=== PATIENT | male | born 1950 | race Caucasian/White ===

== ENCOUNTER 2018-06-13 15:27 | Emergency (ER) | payer OTHER ==
[~2018-06-13] VITALS: Ht 167.6 cm; Wt 78.9 kg
[2018-06-13 15:51] VITALS: BP 137/76
--- NOTE | 2018-06-13 16:10 | NUR ---
PT BIB SELF TO THE ED WITH THE CHIEF C/O NOSE PAIN S/P FALL FROM LADDER 30 TODAY. DENIES LOC AFTER FALL. DENIES DIZZINESS OR NAUSEA AT THIS TIME. STATES PAIN OF 8/10. LACERATION NOTED ON NOSE. SWOLLEN NOSE. BLEEDING STOPPED. DENIES ANY OTHER PROBLEM AT THIS TIME. AMBULATORY. VSS. ER AWARE.
[2018-06-13] MEDS ORDERED: LIDOCAINE 1% 500 MG/50 ML VIAL INJ SCH (16:20)
--- NOTE | 2018-06-13 16:31 | NUR ---
PT TAKEN TO CT.
--- NOTE | 2018-06-13 16:55 | NUR ---
PT RETURNED FROM CT VIA WHEELCHAIR
[2018-06-13] MEDS ORDERED: LIDOCAINE MPF 1% 5mL VIAL ONE ×2 (17:18→18:30)
[2018-06-13] MEDS ORDERED: ONDANSETRON 4 MG ODT PO ONE (17:55)
[2018-06-13] MEDS ORDERED: HYDROcodone/APAP 5/325 MG 1 TAB TAB PO ONE (17:55)
[2018-06-13] MEDS ORDERED: BACITRACIN OINT 500 UNITS/GM PKT TP ONE (17:55)
--- NOTE | 2018-06-13 18:44 | NUR ---
Patient discharged with v/s stable. Written and verbal after care instructions given and explained. Patient alert, oriented and verbalized understanding of instructions. Ambulatory with steady gait. All questions addressed prior to discharge. ID band removed. Patient advised to follow up with PMD. Rx of NORCO, MOTRIN, KEFLEX, BACITRACIN given. Patient educated on indication of medication including possible reaction and side effects. Opportunity to ask questions provided and answered.
[2018-06-13 18:47] VITALS: BP 135/78
== END 2018-06-13 18:44 | disposition home or self-care (01) ==
LOC: MED 15:27
DX: S01.22XA Laceration with foreign body of nose, initial encounter (principal); E11.9 Type 2 diabetes mellitus without complications; N40.0 Benign prostatic hyperplasia without lower urinary tract symptoms; W11.XXXA Fall on and from ladder, initial encounter; Y93.89 Activity, other specified; Y92.89 Other specified places as the place of occurrence of the external cause; Y99.8 Other external cause status
CPT/HCPCS: 70450; 70486; 72125; 99284; J2001; Q0162

== ENCOUNTER 2018-06-25 10:02 | Emergency (ER) | payer OTHER ==
[~2018-06-25] VITALS: Ht 167.6 cm; Wt 79.8 kg
[2018-06-25 10:05] VITALS: BP 122/78
--- NOTE | 2018-06-25 10:14 | NUR ---
PT AMB TO BED 2
--- NOTE | 2018-06-25 10:15 | NUR ---
67/M BIB SELF C/O head injury fell from ladder 06/13/2018---ct scan completed in our ER returns to ER continues intermittent headache and insomnia---denies dizziness or vomiting hx--bph, hyperlipidemia, insomnia, dm rx---Tamsulosin, ativan, gabapantin, atorvastatin, metformin PATIENT STATES PAIN OF 10/10 AT THIS TIME. PATIENT POSITIONED FOR COMFORT; HOB ELEVATED; BEDRAILS UP X2; BED DOWN. ER MD MADE AWARE OF PT STATUS.
--- NOTE | 2018-06-25 10:46 | NUR ---
PATIENT TAKEN FOR CT SCAN VIA [facility] AT THIS TIME.
--- NOTE | 2018-06-25 10:53 | NUR ---
PATIENT RETURNED FROM CT SCAN AT THIS TIME.
[2018-06-25] MEDS ORDERED: FAMOTIDINE 20 MG TAB PO ONE (11:20)
[2018-06-25] MEDS ORDERED: MORPHINE SULFATE 4 MG/ML SYR IM ONE (11:20)
[2018-06-25] MEDS ORDERED: predniSONE 20 MG TAB PO ONE (11:20)
[2018-06-25] MEDS ORDERED: KETOROLAC 60 MG/2 ML VIAL IM ONE (11:20)
--- NOTE | 2018-06-25 12:21 | NUR ---
PT AMB TO [facility] W/O ASST, PT [id number] AT BEDSIDE
--- NOTE | 2018-06-25 13:16 | NUR ---
Patient discharged with v/s stable. Written and verbal after care instructions given and explained. Patient alert, oriented and verbalized understanding of instructions. Ambulatory with steady gait. All questions addressed prior to discharge. ID band removed. Patient advised to follow up with PMD. Rx of fiorecet, prednisone given. Patient educated on indication of medication including possible reaction and side effects. Opportunity to ask questions provided and answered.
[2018-06-25 13:17] VITALS: BP 122/82
== END 2018-06-25 13:16 | disposition home or self-care (01) ==
LOC: MED 10:02
DX: S09.90XA Unspecified injury of head, initial encounter (principal); F41.9 Anxiety disorder, unspecified; M50.322 Other cervical disc degeneration at C5-C6 level; M50.323 Other cervical disc degeneration at C6-C7 level; E78.5 Hyperlipidemia, unspecified; W11.XXXA Fall on and from ladder, initial encounter; Y93.89 Activity, other specified; Y92.89 Other specified places as the place of occurrence of the external cause; Y99.8 Other external cause status
CPT/HCPCS: 70450; 72125; 82948; 96372; 99284; J1885; J2270; J7512